=== PATIENT | female | born 1990 | race Caucasian/White ===

== ENCOUNTER 2017-05-08 11:54 | Emergency (ER) | payer OTHER ==
[2017-05-08 11:59] VITALS: BP 127/65; BMI 33.6
[2017-05-08] MEDS ORDERED: NORFLEX INJ IM ONE (12:16)
[2017-05-08] MEDS ORDERED: TORADOL 60 MG VIAL IM ONE (12:16)
--- NOTE | 2017-05-08 12:16 | DR.GENAD ---
HPI - PCP Primary Care Physician: era Mendez HPI Comment HPI Comment: HISTORY BELOW. - Complaint/Symptoms Chief Complaint Doctors Comments: BODY ACHES AND BONE PAIN TIMES FEW DAYS. GETTING WORSE. Chief Complaint:: patient stated that yesterday morning her bones felt like they were breaking, and her hands has been knumb. - Nurses notes reviewed Nurses Notes Review: Yes - Source History Provided: Patient - Mode of Arrival Mode of Arrival: Ambulatory - Timing Onset of Chief Complaint: 05/07/17 Came on: Suddenly - Duration Duration: Constant Duration: Days - Severity Severity: Moderate PMH - PMH Past Medical History: No Past Surgical History: Yes Surgical History: , Hysterectomy, Ortho Surgery - Family History History of Family Medical Conditions: No Family Medical History: Cancer - Social History Does patient currently use any type of tobacco product: Yes Have you used tobacco products in the last 12 months: Yes Type of Tobacco Use: Cigarettes How many years tobacco product used: 2 Does any household member use tobacco: No Alcohol Use: None Do you use any recreational Drugs:: No Lives With: Family Lives Where: Home - infectious screening In the last 2 months have you had wt loss of >10#?: NO Have you had fever, night sweats or hemotysis?: No Have you traveled outside the country in the last 6 months?: No Isolation: Standard ROS - Review of Systems Constitutional: Fever, Weakness, Fatigue. negative: Chills Eyes: No Symptoms Reported ENTM: Nose Discharge, Nose Congestion. negative: Ear Pain, Throat Pain Respiratoy: Non-Productive Cough. negative: Short of Breath, Wheezing Cardiovascular: No Symptoms Reported Gastrointestinal/Abdominal: Abdominal Pain, Nausea Genitourinary: No Symptoms Reported Neurological: No Symptoms Reported Musculoskeletal: Back Pain, Joint Pain, Joint Swelling, Muscle Pain, Back Integumentary: No Symptoms Reported Hematologic/Lymphatic: No Symptoms Reported Endocrine: No Symptoms Reported All Other Systems: Reviewed and Negative PE - Vital Signs Vitals: Temperature 98.4 F Pulse Rate 120 Respiratory Rate 16 Blood Pressure 127/65 O2 Sat by Pulse Oximetry 98 - General Limitations: No Limitations General Appearance: Alert - Head Head Exam: Normal Inspection - Eyes Eye exam: Normal Appearance - ENT ENT Exam: Normal External Ear Exam External Ear Exam: Normal External Inspection TM/Canal Exam: Bilateral Normal Nose Exam: Normal Nose Exam Mouth Exam: Normal Inspection Throat Exam: Normal Inspection - Neck Neck Exam: Normal Inspection - Chest Chest Inspection: Symmetric Chest Wall Rise - Respiratory Respiratory Exam: Normal Lung Sounds Bilat Respiratory Exam: Bilateral Clear to Auscultation - Cardiovascular Cardiovascular Exam: Regular Rate, Normal Rhythm, Normal Heart Sounds - Abdominal Exam Abdominal Exam: Normal Bowel Sounds, Soft. negative: Tenderness - Extremities Extremities Exam: Normal Inspection - Back Back Exam: (R) CVA Tenderness, (L) CVA Tenderness - Neurologic Neurological Exam: Alert, Oriented X3 - Psychiatric Psychiatric Exam: Normal Affect, Normal Mood - Skin Skin Exam: Normal Color MDM - Differential Diagnosis Differential Diagnosis: ABDOMINAL PAIN, UTI, KIDNEY STONE, UTI Course - Treatment Treatment: SEE ORDERS. - Consultation Consultation Comments: DISCUSS PATIENT WITH DR. KOROMA. PATIENT TO SEE ERA THURSDAY FOR FOLLOW UP. - Education/Counseling Education/Counseling: Patient, Education Educated On: Treatment, Diagnosis, Needs for Follow Up ROR - Labs Reviewed Laboratory Results Reviewed?: Yes Result Diagrams: 05/08/17 12:35 05/08/17 12:35 Laboratory: 05/08/17 12:36 Urine,Clean Catch Urine Culture - Final Escherichia Coli 05/08/17 13:05 Blood Blood Culture - Preliminary 05/08/17 13:10 Blood Blood Culture - Preliminary WBC 23.0 X10^3/uL (3.6-10.0) H 05/08/17 12:35 RBC 4.29 X10^6/uL (3.5-5.4) 05/08/17 12:35 Hgb 12.7 g/dL (12.0-16.0) 05/08/17 12:35 Hct 37.3 % (36.0-47.0) 05/08/17 12:35 MCV 87.0 fL (80.0-100.0) 05/08/17 12:35 MCH 29.7 pg (27.0-34.0) 05/08/17 12:35 MCHC 34.2 g/dL (33.0-35.0) 05/08/17 12:35 RDW 14.3 % (11.6-16.5) 05/08/17 12:35 Plt Count 323 X10^3/uL (150.0-450.0) 05/08/17 12:35 Plt Count Comment Adequate (ADEQUATE) 05/08/17 12:35 MPV 7.6 fL (7.4-11.0) 05/08/17 12:35 Neut % 81.9 % (42.0-75.0) H 05/08/17 12:35 Lymph % 8.6 % (21.0-51.0) L 05/08/17 12:35 [place] % 9.0 % (0.0-13.0) 05/08/17 12:35 Eos % 0.2 % (0.9-2.9) L 05/08/17 12:35 Baso % 0.3 % (0.2-1.0) 05/08/17 12:35 Neut # 18.8 x10^3/uL (2.2-4.8) H 05/08/17 12:35 Lymph # 2.0 X10^3/uL (1.3-2.9) 05/08/17 12:35 [place] # 2.1 x10^3/uL (0.3-0.8) H 05/08/17 12:35 Eos # 0.0 x10^3/uL (0.0-0.2) 05/08/17 12:35 Baso # 0.1 X10^3/uL (0.0-0.1) 05/08/17 12:35 Absolute Nucleated RBC 0.0 /100WBC 05/08/17 12:35 Total Counted 100 05/08/17 12:35 Neutrophils % (Manual) 84 % (39-76) H 05/08/17 12:35 Band Neutrophils % 2 % (0-10) 05/08/17 12:35 Lymphocytes % (Manual) 11 % (13-43) L 05/08/17 12:35 Monocytes % (Manual) 3 % (4-9) L 05/08/17 12:35 Plt Morphology Comment Normal (NORMAL) 05/08/17 12:35 RBC Morphology Normal (NORMAL) 05/08/17 12:35 Sodium 134 mmol/L (136-145) L 05/08/17 12:35 Corrected Sodium TNP 05/08/17 12:35 Potassium 3.3 mmol/L (3.5-5.1) L 05/08/17 12:35 Chloride 96 mmol/L (98-107) L 05/08/17 12:35 Carbon Dioxide 24.6 mmol/L (21-32) 05/08/17 12:35 BUN 6 mg/dL (7-18) L 05/08/17 12:35 Creatinine 0.81 mg/dL (0.55-1.02) 05/08/17 12:35 Est GFR (MDRD) Af Amer > 60 (>60) 05/08/17 12:35 Est GFR (MDRD) Non-Af > 60 (>60) 05/08/17 12:35 Glucose 110 mg/dL (65-99) H 05/08/17 12:35 Calcium 9.3 mg/dL (8.5-10.1) 05/08/17 12:35 Corrected Calcium 9.9 mg/dL (8.5-10.1) 05/08/17 12:35 Total Bilirubin 1.00 mg/dL (0.2-1.0) 05/08/17 12:35 AST 17 Units/L (15-37) 05/08/17 12:35 ALT 22 Units/L (12-78) 05/08/17 12:35 Alkaline Phosphatase 165 Units/L (46-116) H 05/08/17 12:35 Total Protein 8.4 g/dL (6.4-8.2) H 05/08/17 12:35 Albumin 3.3 g/dL (3.4-5.0) L 05/08/17 12:35 Globulin 5.1 g/dL (2.5-4.5) H 05/08/17 12:35 Albumin/Globulin Ratio 0.6 Ratio (1.1-2.1) L 05/08/17 12:35 Specimen Type Clean catch urine 05/08/17 12:36 Urine Color Yellow (YELLOW) 05/08/17 12:36 Urine Appearance Slightly hazy (CLEAR) 05/08/17 12:36 Urine pH 6.0 (5.0 - 8.0) 05/08/17 12:36 Ur Specific [place] 1.015 (1.000-1.030) 05/08/17 12:36 Urine Protein 3+ (NEGATIVE) 05/08/17 12:36 Urine Glucose (UA) Negative (NEGATIVE) 05/08/17 12:36 Urine Ketones Negative (NEGATIVE) 05/08/17 12:36 Urine Occult Blood 5+ (NEGATIVE) 05/08/17 12:36 Urine Nitrite Positive (NEGATIVE) 05/08/17 12:36 Urine Bilirubin Negative (NEGATIVE) 05/08/17 12:36 Urine Urobilinogen 2+ (NORMAL) 05/08/17 12:36 Ur Leukocyte Esterase 3+ (NEGATIVE) 05/08/17 12:36 Urine RBC 20-30 /HPF (NEGATIVE) 05/08/17 12:36 Urine WBC Tntc /HPF (NEGATIVE) 05/08/17 12:36 Ur Squamous Epith Cells Few /HPF (NEGATIVE) 05/08/17 12:36 Urine Bacteria 4+ /HPF (NEGATIVE) 05/08/17 12:36 Ur Culture Indicated? Yes/culture set up 05/08/17 12:36 - XRAY XRAY Interpreted by: Radiologist XRAY Findings: REPORT DISCUSS WITH PATIENT. - Diagnosis Discharge Problem: Pyelonephritis, Cholelithiases - Discharge Plan Disposition: 01 HOME, SELF-CARE Condition: Stable Prescriptions: Ketorolac Tromethamine [Toradol Tab] 10 mg PO Q8H PRN #15 tab PRN Reason: Pain Levofloxacin [LEVAQUIN TAB 750 MG *] 750 mg PO DAILY #7 tab - Follow ups/Referrals Follow ups/Referrals: Jacinto GIRARD [Primary Care Provider] - 3 days - Instructions Instructions: Pyelonephritis, Adult, [id number], Cholelithiasis, [id number] Additional Instructions: RETURN TO ED IF WORSE.
[2017-05-08] MEDS ORDERED: TORADOL 60 MG VIAL ONE (12:20)
[2017-05-08] MEDS ORDERED: NORFLEX INJ ONE (12:20)
[2017-05-08 12:40] LABS: BASOPHILS # (AUTO) 0.1 X10^3/uL (0.0-0.1); BASOPHILS % (AUTO) 0.3 % (0.2-1.0); EOSINOPHILS % (AUTO) 0.2 % (0.9-2.9); HEMATOCRIT 37.3 % (36.0-47.0); HEMOGLOBIN 12.7 g/dL (12.0-16.0); LYMPHOCYTES % (AUTO) 8.6 % (21.0-51.0); MEAN CORPUSCULAR HEMOGLOBIN 29.7 pg (27.0-34.0); MEAN CORPUSCULAR HGB CONC 34.2 g/dL (33.0-35.0); MEAN PLATELET VOLUME 7.6 fL (7.4-11.0); MONOCYTES # (AUTO) 2.1 x10^3/uL (0.3-0.8); NEUTROPHILS # (AUTO) 18.8 x10^3/uL (2.2-4.8); NEUTROPHILS % (AUTO) 81.9 % (42.0-75.0); PLATELET COUNT 323 X10^3/uL (150.0-450.0); RED BLOOD COUNT 4.29 X10^6/uL (3.5-5.4); RED CELL DISTRIBUTION WIDTH 14.3 % (11.6-16.5)
[2017-05-08 12:43] LABS: BILIRUBIN,URINE NEGATIVE (NEGATIVE); BLOOD/HEMOGLOBIN,URINE 5+ (NEGATIVE); GLUCOSE, URINE NEGATIVE (NEGATIVE); KETONES,URINE NEGATIVE (NEGATIVE); LEUKOCYTE ESTERASE ,URINE 3+ (NEGATIVE); NITRITES,URINE POSITIVE (NEGATIVE); PROTEIN,URINE 3+ (NEGATIVE); UROBILINOGEN,URINE 2+ (NORMAL)
[2017-05-08 12:50] LABS: ALANINE AMINOTRANSFERASE 22 Units/L (12-78); ALBUMIN 3.3 g/dL (3.4-5.0); ALKALINE PHOSPHATASE 165 Units/L (46-116); ASPARTATE AMINO TRANSFERASE 17 Units/L (15-37); BLOOD UREA NITROGEN 6 mg/dL (7-18); CALCIUM 9.3 mg/dL (8.5-10.1); CARBON DIOXIDE 24.6 mmol/L (21-32); CHLORIDE 96 mmol/L (98-107); COR CA(FOR HYPOALB) 9.9 mg/dL (8.5-10.1); CREATININE 0.81 mg/dL (0.55-1.02); SODIUM 134 mmol/L (136-145); TOTAL PROTEIN 8.4 g/dL (6.4-8.2); eGFR BLACK RACES > 60 (>60); eGFR NON BLACK RACES > 60 (>60)
[2017-05-08 12:53] LABS: APPEARANCE,URINE SLIGHTLY HAZY (CLEAR); BACTERIA,URINE 4+ /HPF (NEGATIVE); COLOR,URINE YELLOW (YELLOW); RBC,URINE 20-30 /HPF (NEGATIVE); SQUAMOUS EPITHELIAL CELL,UR FEW /HPF (NEGATIVE)
[2017-05-08] MEDS ORDERED: ZOFRAN INJ 4 MG VIAL IVP ONE (12:59)
[2017-05-08] MEDS ORDERED: ZOFRAN INJ 4 MG VIAL ONE (12:59)
[2017-05-08 13:17] LABS: BAND NEUTROPHILS % 2 % (0-10); PLATELET MORPHOLOGY COMMENT NORMAL (NORMAL)
--- NOTE | 2017-05-08 13:44 | CT ---
History: Right flank pain. Concern for renal stone. Exam: Non-contrast CT examination of the abdomen & pelvis. Technique: Multiple CT images of the abdomen and pelvis were obtained from the lung bases to the pubi c symphysis without the IV administration of radiopaque contrast. Findings: The lung bases are clear. The heart is normal in size without a pericardial effusion. The liver, stom ach, adrenal glands, and spleen are unremarkable on these non contrasted images. There is no pneumope ritoneum or hemoperitoneum seen. There is no bowel obstruction, large hernia defect, or acute mesente tessa inflammatory change. There is no evidence for colitis, diverticulitis, or appendicitis. No locula isabel intraperitoneal fluid collection is seen. Several tiny gallstones in the gallbladder. Please katherine elate. Examination of the kidneys demonstrates nonspecific right-sided perinephric and periureteral i nflammatory stranding with mild right renal pelvic dilatation without CT evidence for an obstructing renal stone. These findings can be seen with urinary inflammation/infection such as pyelonephritis or from a recently passed renal stone. Please correlate with urinalysis to account for this finding. Re nal sonography follow-up in 2-4 weeks is also suggested to exclude a developing ureteral stricture. N o other renal, bladder, or abdominopelvic abnormalities are seen. No lytic bony lesions or acute frac tures are seen. Impression: Several tiny gallstones in the gallbladder without gallbladder distention. Please correla te. Examination of the kidneys demonstrates nonspecific right-sided perinephric and periureteral infl ammatory stranding with mild right renal pelvic dilatation without CT evidence for an obstructing lavonne al stone. These findings can be seen with urinary inflammation/infection such as pyelonephritis or fr om a recently passed renal stone. Please correlate with urinalysis to account for this finding. Renal sonography follow-up in 2-4 weeks is also suggested to exclude a developing ureteral stricture. Norm al appendix. Reported By:
[2017-05-08] MEDS ORDERED: ROCEPHIN VIAL 1 GM 1 GM in NS 50 ML IV + SPIKE MINIBAG* 50 ML IV ONE (14:18)
[2017-05-08] MEDS ORDERED: ROCEPHIN 1 GM IV PREMIX 1 GM/50 ML IV.SOLN. IV ONE (14:20)
[2017-05-08] MEDS ORDERED: K-LYTE EFFERVESCENT ONE (14:38)
[2017-05-08] MEDS ORDERED: MORPHINE SULFATE INJ 4 MG IVP ONE (14:52)
[2017-05-08] MEDS ORDERED: LEVAQUIN TAB 750 MG PO SCH (15:00)
[2017-05-08] MEDS ORDERED: MORPHINE SULFATE INJ 4 MG ONE (15:08)
[2017-05-08] MEDS ORDERED: LEVAQUIN TAB 250 MG ONE ×2 (15:10→15:11)
[2017-05-08] MEDS ORDERED: LEVAQUIN TAB 500 MG ONE (15:10)
[2017-05-09] MEDS ORDERED: K-LYTE EFFERVESCENT PO ONE (14:36)
== END 2017-05-08 15:18 | disposition home or self-care (01) ==
LOC: ER 11:54
DX: N12 Tubulo-interstitial nephritis, not specified as acute or chronic (principal); K80.20 Calculus of gallbladder without cholecystitis without obstruction; B96.29 Other Escherichia coli [E. coli] as the cause of diseases classified elsewhere
CPT/HCPCS: 36415; 74176; 80053; 81001; 85025; 87040; 87086; 87088; 87186; 96365; 96372; 96374; 96375; 99283; A4222; J0696; J1885; J2270; J2360; J2405

== ENCOUNTER 2020-04-27 12:54 | Inpatient (IN) ==
[2020-04-27 12:57] VITALS: BMI 37.5
[2020-04-27] MEDS ORDERED: DEMEROL INJ IVP ONE (13:03)
[2020-04-27] MEDS ORDERED: ZOFRAN INJ 4 MG VIAL IVP ONE (13:03)
[2020-04-27] MEDS ORDERED: DEMEROL INJ ONE (13:11)
[2020-04-27] MEDS ORDERED: ZOFRAN INJ 4 MG VIAL ONE ×2 (13:11→23:25)
--- NOTE | 2020-04-27 13:13 | DR.GENAD ---
HPI Time Seen Time Seen by Provider: 04/27/20 13:03 PCP Primary Care Physician: MAURICIO Complaint/Symptoms Chief Complaint:: RIGHT BREAST PAIN, SWELLING. ONSET OF LAST THURSDAY. PT. HAS BEEN ON ANTIBIOTICS SINCE THURSDAY. PT. SEEN DR. ACEVEDO THURSDAY. PT. STATES SHE HAS BEEN HAVING CHILLS AND HURTING IN THE RIGHT SIDE OF HER BACK BEHIND BREAST. COVID-19 Coronavirus risk:travel/contact w/high risk person: No Has patient experienced Coronavirus symptoms: No Source History Provided: Patient Mode of Arrival Mode of Arrival: Ambulatory Timing Onset of Chief Complaint: 04/19/20 PMH PMH Past Medical History: No Past Surgical History: Yes Surgical History: , Hysterectomy and Ortho Surgery Family History History of Family Medical Conditions: Yes Family Medical History: Cancer Social History Does patient currently use any type of tobacco product: No Have you used tobacco products in the last 12 months: No Type of Tobacco Use: None Does any household member use tobacco: No Alcohol Use: None Do you use any recreational Drugs:: No Lives With: Spouse Lives Where: Home Travel Risk Coronavirus risk:travel/contact w/high risk person: No Has patient experienced Coronavirus symptoms: No Infectious screening In the last 2 months have you had wt loss of >10#?: NO Have you had fever, night sweats or hemotysis?: No Have you traveled outside the country in the last 6 months?: No Isolation: Standard ROS Review of Systems Constitutional: Chills and Malaise Eyes: No Symptoms Reported ENTM: No Symptoms Reported Respiratoy: No Symptoms Reported Cardiovascular: No Symptoms Reported Gastrointestinal/Abdominal: No Symptoms Reported Genitourinary: No Symptoms Reported Neurological: No Symptoms Reported Musculoskeletal: See HPI Integumentary: See HPI Hematologic/Lymphatic: No Symptoms Reported Endocrine: No Symptoms Reported Psychiatric: No Symptoms Reported All Other Systems: Reviewed and Negative PE Vital Signs Vitals: Temperature 97.2 F Pulse Rate 106 Respiratory Rate 22 Blood Pressure [Left Arm] 115/77 Blood Pressure 134/94 O2 Sat by Pulse Oximetry 96 General Limitations: No Limitations General Appearance: Alert and In Distress (severe pain in right breast) Head Head Exam: Normal Inspection, Atraumatic and Normocephalic Eyes Eye exam: Normal Appearance, PERRL and EOMI; negative Scleral Icterus and Conjunctival Injection ENT ENT Exam: Normal Exam, Normal Oropharynx and Mucous Membranes Moist Mouth Exam: Normal Inspection Neck Neck Exam: Normal Inspection, Full ROM and Trachea Midline; negative Tenderness, Meningismus and Lymphadenopathy Chest Chest Inspection: Symmetric Chest Wall Rise and Other (right breast with large area of tendenrness and redness and increased caloric overlying skin intact); negative Normal Inspection Respiratory Respiratory Exam: Normal Lung Sounds Bilat; negative Accessory Muscle Use Respiratory Exam: Bilateral: Clear to Auscultation Cardiovascular Cardiovascular Exam: Regular Rate, Normal Rhythm and Normal Heart Sounds Abdominal Exam Abdominal Exam: Normal Inspection and Soft; negative Distention, Tenderness and Guarding Extremities Extremities Exam: Normal Inspection and Full ROM; negative Tenderness Back Back Exam: Normal Inspection; negative Full ROM and Tenderness Neurologic Neurological Exam: Alert, Oriented X3 and Normal Gait Psychiatric Psychiatric Exam: Normal Affect and Anxious (not inapropriate) Skin Skin Exam: Other (see above for right breast otherwise skin is WNL) MDM Differential Diagnosis Differential Diagnosis: mastitis, abscess, infected parenchymal cyst COURSE Consultation Consultation Comments: Dr mendoza came in and will admit the patient ROR Labs Reviewed Laboratory Results Reviewed?: Yes Result Diagrams: 04/27/20 13:10 04/27/20 13:10 Laboratory: WBC 14.4 X10^3/uL (3.6-10.0) H 04/27/20 13:10 RBC 4.56 X10^6/uL (3.5-5.4) 04/27/20 13:10 Hgb 14.3 g/dL (12.0-16.0) 04/27/20 13:10 Hct 41.9 % (36.0-47.0) 04/27/20 13:10 MCV 92.0 fL (80.0-100.0) 04/27/20 13:10 MCH 31.3 pg (27.0-34.0) 04/27/20 13:10 MCHC 34.1 g/dL (33.0-35.0) 04/27/20 13:10 RDW 13.8 % (11.6-16.5) 04/27/20 13:10 Plt Count 385 X10^3/uL (150.0-450.0) 04/27/20 13:10 MPV 7.6 fL (7.4-11.0) 04/27/20 13:10 Neut % (Auto) 66.6 % (42.0-75.0) 04/27/20 13:10 Lymph % (Auto) 25.6 % (21.0-51.0) 04/27/20 13:10 [place] % (Auto) 5.4 % (0.0-13.0) 04/27/20 13:10 Eos % (Auto) 1.8 % (0.9-2.9) 04/27/20 13:10 Baso % (Auto) 0.6 % (0.2-1.0) 04/27/20 13:10 Neut # (Auto) 9.6 x10^3/uL (2.2-4.8) H 04/27/20 13:10 Lymph # (Auto) 3.7 X10^3/uL (1.3-2.9) H 04/27/20 13:10 [place] # (Auto) 0.8 x10^3/uL (0.3-0.8) 04/27/20 13:10 Eos # (Auto) 0.3 x10^3/uL (0.0-0.2) H 04/27/20 13:10 Baso # (Auto) 0.1 X10^3/uL (0.0-0.1) 04/27/20 13:10 Absolute Nucleated RBC 0.0 /100WBC 04/27/20 13:10 Sodium 139 mmol/L (136-145) 04/27/20 13:10 Corrected Sodium TNP 04/27/20 13:10 Potassium 3.4 mmol/L (3.5-5.1) L 04/27/20 13:10 Chloride 101 mmol/L (98-107) 04/27/20 13:10 Carbon Dioxide 32.5 mmol/L (21-32) H 04/27/20 13:10 BUN 4 mg/dL (7-18) L 04/27/20 13:10 Creatinine 0.68 mg/dL (0.55-1.02) 04/27/20 13:10 Est GFR (MDRD) Af Amer > 60 (>60) 04/27/20 13:10 Est GFR (MDRD) Non-Af > 60 (>60) 04/27/20 13:10 Glucose 95 mg/dL (65-99) 04/27/20 13:10 Lactic Acid 1.0 mmol/L (0.4-2.0) 04/27/20 13:10 Calcium 9.3 mg/dL (8.5-10.1) 04/27/20 13:10 XRAY X-ray Results: u/s infection v/s abscess see report Opioid Opioid Risk Tool Age (Javier box if 16-45): Yes History of Preadolescent Sexual Abuse: No Total: 1 Total Score Risk Category: Low Risk Copyright: Indra DE LEON predicting aberrant behaviors Diagnosis Discharge Problem: Mastitis Instructions Forms: Social Distancing
[2020-04-27] MEDS ORDERED: NS 100 ML IV + SPIKE MINIBAG* 100 ML IV ONE (13:18)
[2020-04-27] MEDS: NAFCILLIN SODIUM 2 G in NS 100 ML IV 100 ML IV SCH ×3 (13:24→19:48)
[2020-04-27 13:26] LABS: BASOPHILS # (AUTO) 0.1 X10^3/uL (0.0-0.1); BASOPHILS % (AUTO) 0.6 % (0.2-1.0); EOSINOPHILS # (AUTO) 0.3 x10^3/uL (0.0-0.2); EOSINOPHILS % (AUTO) 1.8 % (0.9-2.9); HEMATOCRIT 41.9 % (36.0-47.0); HEMOGLOBIN 14.3 g/dL (12.0-16.0); LYMPHOCYTES # (AUTO) 3.7 X10^3/uL (1.3-2.9); LYMPHOCYTES % (AUTO) 25.6 % (21.0-51.0); MEAN CORPUSCULAR HEMOGLOBIN 31.3 pg (27.0-34.0); MEAN CORPUSCULAR HGB CONC 34.1 g/dL (33.0-35.0); MEAN PLATELET VOLUME 7.6 fL (7.4-11.0); MONOCYTES # (AUTO) 0.8 x10^3/uL (0.3-0.8); MONOCYTES % (AUTO) 5.4 % (0.0-13.0); NEUTROPHILS # (AUTO) 9.6 x10^3/uL (2.2-4.8); NEUTROPHILS % (AUTO) 66.6 % (42.0-75.0); PLATELET COUNT 385 X10^3/uL (150.0-450.0); RED BLOOD COUNT 4.56 X10^6/uL (3.5-5.4); RED CELL DISTRIBUTION WIDTH 13.8 % (11.6-16.5); WHITE BLOOD COUNT 14.4 X10^3/uL (3.6-10.0)
[2020-04-27 13:40] LABS: BLOOD UREA NITROGEN 4 mg/dL (7-18); CALCIUM 9.3 mg/dL (8.5-10.1); CARBON DIOXIDE 32.5 mmol/L (21-32); CHLORIDE 101 mmol/L (98-107); CREATININE 0.68 mg/dL (0.55-1.02); SODIUM 139 mmol/L (136-145); eGFR NON BLACK RACES > 60 (>60)
--- NOTE | 2020-04-27 14:20 | US ---
HISTORYRT BREAST SWELLING ?? ABCESS X 1MTHSTUDYBREASTCOMPARISONNoneTECHNIQUEMultiple milian scale and color. Images of the right breast were obtained.FINDINGSSonographic evaluation of the region of interest at 6 o'clock in the subareolar [address] was performed. There is heterogeneous background echotexture. There is overlying skin thickening w ith diffusely edematous parenchyma. Additionally, there is a 2 cm partially circumscribed 2 cm hetero geneous and slightly irregular lesion extending from the skin surface with posterior acoustical enhan cement and peripheral but no internal vascularity favored to represent a complex fluid collection in the setting of a infected parenchymal cyst and probable abscess formation. An underlying solid mass i s less likely, but short-term follow-up after therapy and resolution of acute symptoms in approximate ly 3 months is recommended.IMPRESSIONFindings favored to represent a 2 cm infected parenchymal cyst a nd/or abscess. If not previously performed, a short-term trial of antibiotic therapy would be recomme nded. In the absence of clinical response to antibiotics, ultrasound-guided aspiration versus surgica l incision and drainage would be recommended and could also otherwise be performed initially if clini darrell warranted in conjunction with antibiotic therapy. After treatment and resolution of acute sympt oms, three-month sonographic follow-up is recommended to document resolution.ACR CATEGORY: 3- Probabl y benignShort interval (3 Month) follow upElectronically signed by: LUCI BALL (Apr 27, 2020 14:18 :59)
[2020-04-27] MEDS ORDERED: LR 1000 ML IV 1,000 ML IV ONE (14:27)
[2020-04-27] MEDS ORDERED: DILAUDID INJ ONE (14:27)
[2020-04-27] MEDS: LR 1000 ML IV 1,000 ML IV SCH ×2 (14:44→23:36)
[2020-04-27] MEDS ORDERED: BETADINE SOLN ONE (14:45)
[2020-04-27] MEDS ORDERED: VERSED ONE (14:55)
[2020-04-27] MEDS ORDERED: DIPRIVAN VIAL ONE (14:55)
[2020-04-27] MEDS ORDERED: VANCOMYCIN IV *PREMIX 1 G/200 ML BAG 1 G/200 ML PIGGYBACK IV SCH (15:30)
[2020-04-27] MEDS ORDERED: NS 250 ML IV 250 ML IV ONE (16:03)
[2020-04-27] MEDS ORDERED: VANCOMYCIN HCL ONE (16:03)
[2020-04-27] MEDS: DILAUDID INJ IVP PRN ×2 (18:55→23:10)
[2020-04-27] MEDS ORDERED: POTASSIUM CHLORIDE LIQ 20 MEQ UDC PO PRN (19:03)
[2020-04-27] MEDS ORDERED: POTASSIUM CHL 40 MEQ/NS 0.45% 500 ML IV PRN (19:03)
[2020-04-27] MEDS ORDERED: MICRO K EXTEN CAP 10 MEQ PO PRN (19:03)
[2020-04-27] MEDS ORDERED: K-RIDER 10 MEQ/NS 100 ML 10 MEQ/100 ML BAG IV PRN (19:03)
[2020-04-27] MEDS ORDERED: POTASSIUM CHL 60 MEQ/NS 0.45% 500 ML IV PRN (19:03)
[2020-04-27] MEDS ORDERED: MAGNESIUM SULFATE 1 GRAM/100 mL PREMIX 1 GM/100 ML BAG IV PRN (19:03)
[2020-04-27] MEDS ORDERED: KLOR-CON PO PRN (19:03)
[2020-04-27] MEDS ORDERED: VANCOMYCIN IV *PREMIX 1 G/200 ML BAG 1 G/200 ML PIGGYBACK IV ONE (21:00)
[2020-04-27] MEDS: VANCOMYCIN IV *PREMIX 1 G/200 ML BAG 1 G/200 ML PIGGYBACK IV SCH (21:04)
[2020-04-27] MEDS: K-DUR TAB 20 MEQ PO PRN (22:04)
[2020-04-27] MEDS: ZOFRAN INJ 4 MG VIAL IVP PRN (23:15)
[2020-04-28] MEDS: NAFCILLIN SODIUM 2 G in NS 100 ML IV 100 ML IV SCH ×6 (00:35→21:00)
[2020-04-28] MEDS: VANCOMYCIN IV *PREMIX 1 G/200 ML BAG 1 G/200 ML PIGGYBACK IV SCH ×3 (05:09→15:15)
[2020-04-28 06:05] LABS: BASOPHILS # (AUTO) 0.1 X10^3/uL (0.0-0.1); BASOPHILS % (AUTO) 0.5 % (0.2-1.0); EOSINOPHILS # (AUTO) 0.3 x10^3/uL (0.0-0.2); EOSINOPHILS % (AUTO) 2.4 % (0.9-2.9); HEMATOCRIT 36.4 % (36.0-47.0); HEMOGLOBIN 12.4 g/dL (12.0-16.0); LYMPHOCYTES # (AUTO) 3.1 X10^3/uL (1.3-2.9); LYMPHOCYTES % (AUTO) 29.3 % (21.0-51.0); MEAN CORPUSCULAR HEMOGLOBIN 31.4 pg (27.0-34.0); MEAN CORPUSCULAR HGB CONC 34.2 g/dL (33.0-35.0); MEAN CORPUSCULAR VOLUME 91.8 fL (80.0-100.0); MEAN PLATELET VOLUME 7.5 fL (7.4-11.0); MONOCYTES # (AUTO) 0.6 x10^3/uL (0.3-0.8); NEUTROPHILS # (AUTO) 6.6 x10^3/uL (2.2-4.8); NEUTROPHILS % (AUTO) 61.8 % (42.0-75.0); PLATELET COUNT 331 X10^3/uL (150.0-450.0); RED BLOOD COUNT 3.96 X10^6/uL (3.5-5.4); RED CELL DISTRIBUTION WIDTH 13.9 % (11.6-16.5); WHITE BLOOD COUNT 10.7 X10^3/uL (3.6-10.0)
[2020-04-28 06:23] LABS: ALANINE AMINOTRANSFERASE 44 Units/L (12-78); ALKALINE PHOSPHATASE 147 Units/L (46-116); ASPARTATE AMINO TRANSFERASE 29 Units/L (15-37); BLOOD UREA NITROGEN 4 mg/dL (7-18); CALCIUM 8.7 mg/dL (8.5-10.1); CARBON DIOXIDE 26.7 mmol/L (21-32); CHLORIDE 105 mmol/L (98-107); COR CA(FOR HYPOALB) 9.5 mg/dL (8.5-10.1); CREATININE 0.69 mg/dL (0.55-1.02); MAGNESIUM 2.3 mg/dL (1.7-2.9); SODIUM 141 mmol/L (136-145); TOTAL PROTEIN 6.7 g/dL (6.4-8.2); eGFR NON BLACK RACES > 60 (>60)
[2020-04-28] MEDS: K-DUR TAB 20 MEQ PO PRN (08:46)
[2020-04-28] MEDS: LR 1000 ML IV 1,000 ML IV SCH ×3 (08:51→23:35)
[2020-04-28] MEDS: DILAUDID INJ IVP PRN ×2 (08:52→13:01)
[2020-04-28] MEDS: ZOFRAN INJ 4 MG VIAL IVP PRN ×2 (08:53→18:19)
--- NOTE | 2020-04-28 11:43 | DR.PROGNOT ---
Hospital Progress Notes - Progress Note for Day of: Progress Note Date: 04/28/20 - Chief Complaint Chief Complaint: feeling better after I&D Rt breast abscess . mild drainage and moderate cellulitis Rt breast . afebrile . - Past Medical Family Social History Past Med/Fam/Surg Hx: No changes since H&P Allergies: Allergies No Known Drug Allergies Allergy (Verified 05/08/17 11:55) - Review Of Systems ROS: No change since H&P - Vital Signs Vital Signs: Temperature 98.5 F Pulse Rate [Brachial] 69 Pulse Rate 86 Respiratory Rate 20 Blood Pressure [Right Arm] 111/56 Blood Pressure [Left Arm] 115/77 Blood Pressure 151/84 O2 Sat by Pulse Oximetry 97 - Physical Exam Oriented: Normal Eyes: Normal Ear: Normal Nose: Normal Throat: Normal Respiratory: Normal Cardiovascular: Normal : Normal GI:Auscultation: Normal GI:Palpation: Normal GI: Tenderness: Normal Skin: Other (cellulitis Rt breast , areolar and most of the lower breast . packing in place .) Speech Pattern: Clear, Appropriate - Laboratory and Diagnostics Result Diagrams: 04/28/20 05:34 04/28/20 05:34 Labs: 04/27/20 15:04 Breast - Right Gram Stain - Final Laboratory WBC 10.7 X10^3/uL (3.6-10.0) H 04/28/20 05:34 RBC 3.96 X10^6/uL (3.5-5.4) 04/28/20 05:34 Hgb 12.4 g/dL (12.0-16.0) 04/28/20 05:34 Hct 36.4 % (36.0-47.0) 04/28/20 05:34 MCV 91.8 fL (80.0-100.0) 04/28/20 05:34 MCH 31.4 pg (27.0-34.0) 04/28/20 05:34 MCHC 34.2 g/dL (33.0-35.0) 04/28/20 05:34 RDW 13.9 % (11.6-16.5) 04/28/20 05:34 Plt Count 331 X10^3/uL (150.0-450.0) 04/28/20 05:34 MPV 7.5 fL (7.4-11.0) 04/28/20 05:34 Neut % (Auto) 61.8 % (42.0-75.0) 04/28/20 05:34 Lymph % (Auto) 29.3 % (21.0-51.0) 04/28/20 05:34 [place] % (Auto) 6.0 % (0.0-13.0) 04/28/20 05:34 Eos % (Auto) 2.4 % (0.9-2.9) 04/28/20 05:34 Baso % (Auto) 0.5 % (0.2-1.0) 04/28/20 05:34 Neut # (Auto) 6.6 x10^3/uL (2.2-4.8) H 04/28/20 05:34 Lymph # (Auto) 3.1 X10^3/uL (1.3-2.9) H 04/28/20 05:34 [place] # (Auto) 0.6 x10^3/uL (0.3-0.8) 04/28/20 05:34 Eos # (Auto) 0.3 x10^3/uL (0.0-0.2) H 04/28/20 05:34 Baso # (Auto) 0.1 X10^3/uL (0.0-0.1) 04/28/20 05:34 Absolute Nucleated RBC 0.0 /100WBC 04/28/20 05:34 Sodium 141 mmol/L (136-145) 04/28/20 05:34 Corrected Sodium TNP 04/28/20 05:34 Potassium 3.6 mmol/L (3.5-5.1) 04/28/20 05:34 Chloride 105 mmol/L (98-107) 04/28/20 05:34 Carbon Dioxide 26.7 mmol/L (21-32) 04/28/20 05:34 BUN 4 mg/dL (7-18) L 04/28/20 05:34 Creatinine 0.69 mg/dL (0.55-1.02) 04/28/20 05:34 Est GFR (MDRD) Af Amer > 60 (>60) 04/28/20 05:34 Est GFR (MDRD) Non-Af > 60 (>60) 04/28/20 05:34 Glucose 109 mg/dL (65-99) H 04/28/20 05:34 Lactic Acid 1.0 mmol/L (0.4-2.0) 04/27/20 13:10 Calcium 8.7 mg/dL (8.5-10.1) 04/28/20 05:34 Corrected Calcium 9.5 mg/dL (8.5-10.1) 04/28/20 05:34 Magnesium 2.3 mg/dL (1.7-2.9) 04/28/20 05:34 Total Bilirubin 1.10 mg/dL (0.2-1.0) H 04/28/20 05:34 AST 29 Units/L (15-37) 04/28/20 05:34 ALT 44 Units/L (12-78) 04/28/20 05:34 Alkaline Phosphatase 147 Units/L (46-116) H 04/28/20 05:34 Total Protein 6.7 g/dL (6.4-8.2) 04/28/20 05:34 Albumin 3.0 g/dL (3.4-5.0) L 04/28/20 05:34 Globulin 3.7 g/dL (2.5-4.5) 04/28/20 05:34 Albumin/Globulin Ratio 0.8 Ratio (1.1-2.1) L 04/28/20 05:34 SARS-CoV-2 (PCR) Negative (NEGATIVE) 04/27/20 15:14 - Assessment and Plan 1: abscess Rt breast with cellulitis ( Gram + cocci ). same IV Vancomycin . keep packing - Problem Patient Problems: Patient Problems Mastitis (Acute) N61.0
[2020-04-28] MEDS ORDERED: RESTORIL CAP 15 MG PO PRN (11:44)
[2020-04-28] MEDS ORDERED: PHARMACY COMMENT IV SCH (13:30)
[2020-04-28 14:59] LABS: CREATININE 0.64 mg/dL (0.55-1.02); VANCOMYCIN,TROUGH 7.6 ug/mL (15-20)
[2020-04-28] MEDS: VANCOMYCIN HCL VIAL 1.25 G 1.25 G in D5W 250 ML IV 250 ML IV SCH ×2 (15:45→21:30)
[2020-04-28] MEDS: PERCOCET TAB 5/325 MG PO PRN (18:18)
[2020-04-28] MEDS ORDERED: VISTARIL PO PRN (19:17)
[2020-04-29] MEDS: NAFCILLIN SODIUM 2 G in NS 100 ML IV 100 ML IV SCH ×3 (00:15→09:10)
[2020-04-29] MEDS: DILAUDID INJ IVP PRN (02:46)
[2020-04-29] MEDS: LR 1000 ML IV 1,000 ML IV SCH ×2 (05:08→07:16)
[2020-04-29 05:45] LABS: BASOPHILS # (AUTO) 0.1 X10^3/uL (0.0-0.1); BASOPHILS % (AUTO) 0.8 % (0.2-1.0); EOSINOPHILS # (AUTO) 0.3 x10^3/uL (0.0-0.2); EOSINOPHILS % (AUTO) 3.1 % (0.9-2.9); HEMATOCRIT 37.6 % (36.0-47.0); HEMOGLOBIN 12.8 g/dL (12.0-16.0); LYMPHOCYTES # (AUTO) 3.1 X10^3/uL (1.3-2.9); LYMPHOCYTES % (AUTO) 32.8 % (21.0-51.0); MEAN CORPUSCULAR HEMOGLOBIN 31.2 pg (27.0-34.0); MEAN CORPUSCULAR HGB CONC 33.9 g/dL (33.0-35.0); MEAN CORPUSCULAR VOLUME 91.8 fL (80.0-100.0); MEAN PLATELET VOLUME 7.4 fL (7.4-11.0); MONOCYTES # (AUTO) 0.6 x10^3/uL (0.3-0.8); MONOCYTES % (AUTO) 6.7 % (0.0-13.0); NEUTROPHILS # (AUTO) 5.4 x10^3/uL (2.2-4.8); NEUTROPHILS % (AUTO) 56.6 % (42.0-75.0); PLATELET COUNT 341 X10^3/uL (150.0-450.0); WHITE BLOOD COUNT 9.6 X10^3/uL (3.6-10.0)
[2020-04-29 05:57] LABS: ALANINE AMINOTRANSFERASE 40 Units/L (12-78); ALBUMIN 3.1 g/dL (3.4-5.0); ALKALINE PHOSPHATASE 150 Units/L (46-116); ASPARTATE AMINO TRANSFERASE 29 Units/L (15-37); BLOOD UREA NITROGEN 4 mg/dL (7-18); CARBON DIOXIDE 25.9 mmol/L (21-32); CHLORIDE 107 mmol/L (98-107); COR CA(FOR HYPOALB) 9.7 mg/dL (8.5-10.1); CREATININE 0.51 mg/dL (0.55-1.02); SODIUM 142 mmol/L (136-145); TOTAL PROTEIN 6.9 g/dL (6.4-8.2); eGFR NON BLACK RACES > 60 (>60)
[2020-04-29] MEDS: VANCOMYCIN HCL VIAL 1.25 G 1.25 G in D5W 250 ML IV 250 ML IV SCH (06:32)
[2020-04-29 08:20] VITALS: BP 100/60
[2020-04-29] MEDS ORDERED: DILAUDID INJ IVP PRN (09:00)
[2020-04-29] MEDS: PERCOCET TAB 5/325 MG PO PRN (09:27)
== END 2020-04-29 10:50 | disposition home or self-care (01) | DRG 601 ==
LOC: ER 12:54 → MED/SURG 15:12
PROVIDERS: ADMIT Surgery; ATTEND Surgery
DX: N61.1 Abscess of the breast and nipple; Z20.828 Contact with and (suspected) exposure to other viral communicable diseases